=== PATIENT | female | born 1995 | race Caucasian/White ===

== ENCOUNTER 2018-03-24 20:10 | Emergency (ER) | payer BC ==
[~2018-03-24] VITALS: Ht 165.1 cm; Wt 85.8 kg
[2018-03-24 20:15] VITALS: BP 141/95; PULSE 92; RESP 18; Ht 165.1 cm; Wt 85.8 kg
[2018-03-24] MEDS ORDERED: ACET500C5 PO (23:39)
[2018-03-25] MEDS ORDERED: ACETAMINOPHEN 325 MG TAB PO ONE
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
== END 2018-03-25 | disposition home or self-care (01) ==
LOC: FTE 20:10
DX: R51 Headache (principal)
CPT/HCPCS: 99282